=== PATIENT | female | born 1960 | race Caucasian/White ===

== ENCOUNTER 2024-12-19 10:30 | Emergency (ER) | payer MEDICAID ==
[~2024-12-19] VITALS: Ht 167.6 cm; Wt 52.3 kg
[2024-12-19 10:56] VITALS: TEMP 98.6
[2024-12-19 11:38] LABS: BASOPHILS % (AUTO) 1.3 % (0-1); EOSINOPHILS % (AUTO) 0.6 % (0-6); HEMATOCRIT 46.4 % (35.0-45.0); HEMOGLOBIN 15.6 g/dl (12.0-16.0); LYMPHOCYTES # (AUTO) 0.8 X10'3 (1.1-4.8); LYMPHOCYTES % (AUTO) 20.8 % (21-51); MEAN CORPUSCULAR HEMOGLOBIN 29.4 PG (27.0-31.0); MEAN CORPUSCULAR HGB CONC 33.5 g/dL (33.0-36.5); MEAN CORPUSCULAR VOLUME 87.8 FL (78-98); MEAN PLATELET VOLUME 7.7 FL (7.4-10.4); MONOCYTES # (AUTO) 0.2 X10'3 (0-0.9); MONOCYTES % (AUTO) 4.7 % (2-12); NEUTROPHILS # (AUTO) 2.7 X10'3 (1.8-7.7); NEUTROPHILS % (AUTO) 72.6 % (42-75); PLATELET COUNT 251 X10'3 (140-440); RED BLOOD COUNT 5.28 X10'6 (4.20-5.60); RED CELL DISTRIBUTION WIDTH 14.2 % (11.5-14.5); WHITE BLOOD COUNT 3.7 X10'3 (4.5-11.0)
[2024-12-19 12:01] LABS: ALANINE AMINOTRANSFERASE 16 U/L (12-78); ALBUMIN 4.4 G/DL (3.4-5.0); ALBUMIN/GLOBULIN RATIO 1.2 (1.1-1.5); ALKALINE PHOSPHATASE 63 IU/L (46-116); ANION GAP 11 (8-16); ASPARTATE AMINO TRANSFERASE 15 U/L (10-37); BILIRUBIN,TOTAL 0.5 MG/DL (0.1-1.0); BLOOD UREA NITROGEN 5 MG/DL (7-18); CALCIUM 9.3 MG/DL (8.5-10.1); CHLORIDE 103 MMOL/L (99-107); GLUCOSE 83 MG/DL (70-104); LIPASE 56 U/L (16-77); POTASSIUM 4.3 MMOL/L (3.5-5.1); SODIUM 141 MMOL/L (135-145); TOTAL CARBON DIOXIDE 27.5 MMOL/L (24-32); TOTAL PROTEIN 8.2 G/DL (6.4-8.2); eCRCL 95 ML/MIN; eGFR > 90 ML/MIN
[2024-12-19] MEDS ORDERED: PHEN16.226 PO (13:20)
[2024-12-19] MEDS: LORazepam 2 mg/ml vial IV ONE (13:33)
[2024-12-19] MEDS: metoclopramide 5 mg/ml inj IV ONE (13:33)
[2024-12-19] MEDS: diphenhydrAMINE 50 mg/ml inj IV ONE (13:33)
[2024-12-19] MEDS: normal saline 1000ML IV soln IVB ONE (13:34)
[2024-12-19 13:44] LABS: BILIRUBIN,URINE NEGATIVE (Neg); CLARITY,URINE CLEAR (Clear); COLOR,URINE YELLOW (Yellow); GLUCOSE, URINE NEGATIVE (Neg); KETONES,URINE >=80 mg/dl (Neg); LEUKOCYTE ESTERASE ,URINE NEGATIVE (Neg); NITRITES, URINE NEGATIVE (Neg); OCCULT BLOOD,URINE TRACE-INTACT (Neg); PROTEIN,URINE NEGATIVE (Neg); UROBILINOGEN,URINE 0.2 E.U/dL (0.2-1.0)
[2024-12-19 13:47] LABS: URINE HCG NEGATIVE (NEG)
[2024-12-19 13:58] LABS: UA COLLECTION TYPE URINAL
[2024-12-19 13:59] LABS: BACTERIA,URINE NONE SEEN /HPF (Neg); MUCUS STRANDS FEW /LPF (Neg); RBC,URINE 0-2 /HPF (0-2); SQUAMOUS EPITHELIAL CELL,UR FEW /LPF (FEW); WBC,URINE NONE SEEN /HPF (0-4)
[2024-12-19 14:09] VITALS: BP 112/79; PULSE 98; RESP 14; O2SAT 98
== END 2024-12-19 14:17 | disposition home or self-care (01) ==
LOC: ER 10:31
DX: R10.13 Epigastric pain (principal); E86.0 Dehydration; F41.9 Anxiety disorder, unspecified; I48.91 Unspecified atrial fibrillation; Z88.5 Allergy status to narcotic agent; Z88.1 Allergy status to other antibiotic agents; Z79.899 Other long term (current) drug therapy
CPT/HCPCS: 36415; 80053; 81001; 81025; 83690; 85025; 96361; 96374; 96375; 99284; J1200; J2060; J2765; J7030

== ENCOUNTER 2025-03-10 08:17 | Outpatient (CLI) | payer MEDICAID ==
[~2025-03-10 08:17] MED LIST: PHEN16.226 PO; iohexol 350MG/ML 100ml bottle IV ONE
[2025-03-10 08:51] LABS: ALBUMIN 3.7 G/DL (3.4-5.0); ANION GAP 8 (8-16); BLOOD UREA NITROGEN 11 MG/DL (7-18); BUN/CREATININE RATIO 14.9 (10.0-20.0); CALCIUM 8.9 MG/DL (8.5-10.1); CHLORIDE 105 MMOL/L (99-107); CREATININE 0.74 MG/DL (0.40-0.90); GLUCOSE 91 MG/DL (70-104); POTASSIUM 4.2 MMOL/L (3.5-5.1); SODIUM 140 MMOL/L (135-145); TOTAL CARBON DIOXIDE 27.4 MMOL/L (24-32); eGFR 79 ML/MIN
[2025-03-10] MEDS ORDERED: iohexol 350MG/ML 100ml bottle IV ONE (09:38)
--- NOTE | 2025-03-10 11:56 | RADIOLOGY REPORT ---
EXAM: CT CTA ABDOMEN PELVIS HISTORY: ABNORMAL WEIGHT LOSS,NAUSEA WITH VOMITING, PLEASE "MEASURE SMA ANGLE TO AORTA" COMPARISON: None TECHNIQUE: Helical high resolution CT images of the abdomen and pelvis were performed with 100 ml omn ipaque 350 IV contrast using CTA protocol. Sagittal and coronal reformatted images were not obtained. 3-D MIP sagittal and coronal images were obtained. This CT exam was performed using one or more of t he following dose reduction techniques: Automated exposure control, adjustment of the mA and/or kV ac cording to patient size, or use of iterative reconstruction technique. Radiation Dose: CTDI volume is 19.39 mGy. Dose-length product is 424.42 mGy*cm FINDINGS: Abdominal Aorta: No abdominal aortic aneurysm, dissection, or significant stenosis. Renals: There are single renal arteries bilaterally. No significant renal artery stenosis bilaterally . Celiomesenteric: The celiac trunk, SMA, and NNAMDI are patent. The SMA takes off at a 24 degree angle on sagittal MIP images. Pelvis: The bilateral common iliac arteries, external iliac arteries, internal iliac arteries, and c ommon femoral arteries are patent. Miscellaneous: There is scarring and/or atelectasis in the right middle lobe and lingula. The liver m easures 20 cm longitudinal. The distal duodenum does not appear narrowed between the abdominal aorta and SMA. There is fecal retention in the ascending colon and descending colon. The uterus is surgical ly absent. There is mild lumbar degenerative disc disease and facet arthropathy. IMPRESSION: 1. No significant stenosis of the arteries of the abdomen and pelvis. 2. No CT evidence of SMA syndrome. 3. Hepatomegaly. 4. Fecal retention in portions of the colon which may indicate constipation.
== END 2025-03-10 23:59 | disposition home or self-care (01) ==
LOC: RAD 08:17
PROVIDERS: ATTEND Surgery
DX: K59.00 Constipation, unspecified (principal); R16.0 Hepatomegaly, not elsewhere classified; R63.4 Abnormal weight loss; R11.2 Nausea with vomiting, unspecified
CPT/HCPCS: 36415; 74174; 80048; Q9967